=== PATIENT | female | born 1965 | race African-American/Black ===

== ENCOUNTER 2021-03-14 15:18 | Outpatient (CLI) | payer BC | END 2021-03-14 15:19 | disposition home or self-care (01) | LOC: BICMAMMO 15:18 | PROVIDERS: ATTEND Family Medicine | DX: Z12.31 Encounter for screening mammogram for malignant neoplasm of breast (principal) | CPT/HCPCS: 77063; 77067 ==

== ENCOUNTER 2021-12-08 10:12 | Outpatient (CLI) | payer BC | END 2021-12-08 10:13 | disposition home or self-care (01) | LOC: TBSIIMAG 10:12 | PROVIDERS: ATTEND Family Medicine | DX: M47.26 Other spondylosis with radiculopathy, lumbar region (principal); R29.898 Other symptoms and signs involving the musculoskeletal system; M51.27 Other intervertebral disc displacement, lumbosacral region; M48.07 Spinal stenosis, lumbosacral region; M48.061 Spinal stenosis, lumbar region without neurogenic claudication; M47.817 Spondylosis without myelopathy or radiculopathy, lumbosacral region | CPT/HCPCS: 72148 ==

== ENCOUNTER 2022-11-05 07:04 | Outpatient (CLI) | payer BC | END 2022-11-05 07:05 | disposition home or self-care (01) | LOC: BICULT 07:04 | PROVIDERS: ATTEND Nurse Practitioner Family | DX: Z12.31 Encounter for screening mammogram for malignant neoplasm of breast (principal); N80.9 Endometriosis, unspecified; R10.30 Lower abdominal pain, unspecified; N63.21 Unspecified lump in the left breast, upper outer quadrant; D25.1 Intramural leiomyoma of uterus | CPT/HCPCS: 76700; 76856; 77063; 77067 ==

== ENCOUNTER 2022-11-11 08:14 | Outpatient (CLI) | payer BC | END 2022-11-11 08:15 | disposition home or self-care (01) | LOC: BICMAMMO 08:14 | PROVIDERS: ATTEND Nurse Practitioner Family | DX: N63.21 Unspecified lump in the left breast, upper outer quadrant (principal) | CPT/HCPCS: G0279 ==